=== PATIENT | female | born 1945 | race American Indian/Alaskan Native ===

== ENCOUNTER 2017-08-22 23:42 | Emergency (ER) | payer MEDICARE ==
--- NOTE | 2017-08-23 02:40 | XRay Report ---
FINAL REPORT EXAM: XR KNEE 1-2V RT HISTORY: post fall knee pain TECHNIQUE: A single lateral portable view of the right knee was submitted. FINDINGS: There is an acute mildly distracted fracture through the waist of the patella with small suprapatellar joint effusion and prepatellar soft tissue swelling. There are no additional fractures. IMPRESSION: Acute mildly distracted fracture through the waist of the patella with small joint effusion and prepatellar soft tissue swelling.
[2017-08-23] MEDS ORDERED: TYLENOL #3 PO ONE (04:31)
[2017-08-23] MEDS ORDERED: MOTRIN PO ONE (04:31)
--- NOTE | 2017-08-23 04:36 | Emergency Department Report ---
ED Lower Extremity HPI - General Chief Complaint: Fall Stated Complaint: FALL / KNEE PAIN Time Seen by Provider: 08/23/17 04:23 Source: patient Mode of arrival: Wheelchair Limitations: No Limitations - History of Present Illness Initial Comments: This is a 72-year-old female who was previously unknown to this provider who presents to the ER with right knee pain after mechanical fall. Had no symptoms prior to mechanical fall. No other injuries. No other complaints. MD Complaint: knee injury, fall -: Sudden Injury: Ankle: Right Type of Injury: blunt Place: home Severity: moderate Improves With: rest Worsens With: movement, palpation Context: fall, direct blow, running Associated Symptoms: swelling, unable to bear weight. denies: numbness, tingling - Related Data Home Medications Medication Instructions Recorded Confirmed Last Taken metFORMIN [Glucophage] 500 mg PO BID 10/05/13 10/14/16 09/18/15 Previous Rx's Medication Instructions Recorded Last Taken Type Metoprolol [Lopressor TAB] 25 mg PO BID #60 tablet 10/05/13 09/18/15 Rx hydrALAZINE [Apresoline TAB] 25 mg PO Q8HR #90 tablet 10/05/13 09/18/15 Rx EPINEPHrine (NF) [Epipen (Nf)] 0.3 mg IM ONCE #1 syringekit 04/15/14 Unknown Rx Famotidine [Pepcid] 20 mg PO BID #20 tablet 09/19/15 Unknown Rx diphenhydrAMINE [Benadryl CAP] 25 mg PO Q8HR #15 capsule 09/19/15 Unknown Rx methylPREDNISolone [Medrol Dose 4 mg PO QAM #1 pack 09/19/15 Unknown Rx Ross] Allergies Allergy/AdvReac Type Severity Reaction Status Date / Time latex Allergy Unknown Verified 09/19/15 11:20 lisinopril Allergy Angioedema Verified 09/19/15 11:20 ED Review of Systems ROS: Stated complaint: FALL / KNEE PAIN Other details as noted in HPI ED Past Medical Hx - Past Medical History Previous Medical History?: Yes Hx Hypertension: Yes Hx Congestive Heart Failure: No Hx Diabetes: Yes Hx Deep Vein Thrombosis: No Hx Asthma: Yes Hx COPD: No Hx HIV: No Additional medical history: hx of angioedema with intubation. - Surgical History Past Surgical History?: Yes Hx Pacemaker: No Hx Internal Defibrillator: No Additional Surgical History: hysterectomy, cataract - Social History Smoking Status: Never Smoker Substance Use Type: None - Medications Home Medications: Home Medications Medication Instructions Recorded Confirmed Last Taken Type Metoprolol [Lopressor TAB] 25 mg PO BID #60 tablet 10/05/13 10/14/16 09/18/15 Rx hydrALAZINE [Apresoline TAB] 25 mg PO Q8HR #90 tablet 10/05/13 10/14/16 Rx metFORMIN [Glucophage] 500 mg PO BID 10/05/13 10/14/16 09/18/15 History EPINEPHrine (NF) [Epipen (Nf)] 0.3 mg IM ONCE #1 syringekit 04/15/14 10/14/16 Unknown Rx Famotidine [Pepcid] 20 mg PO BID #20 tablet 09/19/15 10/14/16 Unknown Rx diphenhydrAMINE [Benadryl CAP] 25 mg PO Q8HR #15 capsule 09/19/15 10/14/16 Unknown Rx methylPREDNISolone [Medrol Dose 4 mg PO QAM #1 pack 09/19/15 10/14/16 Unknown Rx Ross] ED Physical Exam - General Limitations: No Limitations General appearance: alert, in no apparent distress - Head Head exam: Present: atraumatic, normocephalic - Eye Eye exam: Present: normal appearance, PERRL, EOMI. Absent: nystagmus - ENT ENT exam: Present: normal exam, normal orophraynx, mucous membranes moist, normal external ear exam - Neck Neck exam: Present: normal inspection, full ROM - Respiratory Respiratory exam: Present: normal lung sounds bilaterally. Absent: respiratory distress - Cardiovascular Cardiovascular Exam: Present: regular rate, normal rhythm, normal heart sounds. Absent: bradycardia, tachycardia, irregular rhythm, systolic murmur, diastolic murmur, rubs, gallop - GI/Abdominal GI/Abdominal exam: Present: soft, normal bowel sounds. Absent: distended, tenderness, guarding, rebound, rigid, pulsatile mass - Extremities Exam Extremities exam: Present: tenderness (the right knee is diffusely tender and swollen in the anterior joint line. No obvious instability), normal capillary refill, other (2+ pulses noted in the bilateral upper and lower extremities. The pelvis is stable. There is no long bony tenderness.). Absent: pedal edema , joint swelling, calf tenderness - Back Exam Back exam: Present: normal inspection, full ROM. Absent: tenderness, CVA tenderness (R), CVA tenderness (L), muscle spasm, paraspinal tenderness, vertebral tenderness - Neurological Exam Neurological exam: Present: alert, oriented X3, other (Extraocular movements intact. Tongue midline. No facial droop. Facial sensation intact to light touch in the V1, V2, V3 distribution bilaterally. 5 and 5 strength in 4 extremities.. Sensation is intact to light touch in 4 extremities.). Absent: motor sensory deficit - Psychiatric Psychiatric exam: Present: normal affect, normal mood - Skin Skin exam: Present: warm, dry, intact, normal color. Absent: rash ED Course Vital Signs 08/23/17 02:00 Temperature 97.8 F Pulse Rate 88 Blood Pressure 156/68 O2 Sat by Pulse 17 L Oximetry ED Lower Extremity MDM - Lab Data Vital Signs (72 hours) 08/23/17 02:00 Temperature 97.8 F Pulse Rate 88 Blood Pressure 156/68 O2 Sat by Pulse 17 L Oximetry - Radiology Data Radiology results: report reviewed, image reviewed X-ray of the right knee demonstrates patellofemoral. Soft tissue swelling is noted. - Medical Decision Making Differential diagnosis, including but not limited to: Fracture, dislocation, sprain, strain Assessment and plan: 72-year-old female status post mechanical fall, patient has isolated patellar fracture, no other obvious injuries. Patient indicates no head trauma that she is aware. Patient will be placed in a knee immobilizer, crutch training and instructions will be provided, and she is instructed to follow-up with outpatient orthopedics. Of note, pulse ox documented of 70% is likely an error, when I evaluate the patient her pulse ox is 95, 96%. Critical care attestation.: If time is entered above; I have spent that time in minutes in the direct care of this critically ill patient, excluding procedure time. ED Disposition Clinical Impression: Right patella fracture Disposition: [id number] TO HOME OR SELFCARE Is pt being admited?: No Does the pt Need Aspirin: No Condition: Stable Instructions: Patellar Fracture (ED), Knee Pain (ED) Additional Instructions: Rest, and avoid heavy lifting. Weightbearing as tolerated. Use the crutches as directed. Follow-up with orthopedic surgeon within the next 5 days. Return to the ER right away with new pain, worsened pain, migration of pain, intractable nausea or vomiting, weakness, numbness, unsteady gait change in mental status. Referrals: PRIMARY CARE, [Primary Care Provider] - 3-5 Days ELLE ARMIJO MD [Staff Physician] - 3-5 Days
[2017-08-23 06:28] VITALS: BP 158/89
== END 2017-08-23 06:29 | disposition home or self-care (01) ==
LOC: ED 23:42
DX: S82.091A Other fracture of right patella, initial encounter for closed fracture (principal); I10 Essential (primary) hypertension; E11.9 Type 2 diabetes mellitus without complications; J45.909 Unspecified asthma, uncomplicated; Z91.040 Latex allergy status; Z88.8 Allergy status to other drugs, medicaments and biological substances; W17.89XA Other fall from one level to another, initial encounter; Y93.89 Activity, other specified; Y92.89 Other specified places as the place of occurrence of the external cause; Y99.8 Other external cause status